=== PATIENT | female | born 1995 | race African-American/Black ===

== ENCOUNTER → 2018-09-02 | Outpatient (CLI) | payer BC ==
--- NOTE | 2018-09-02 10:00 | KCIC ---
MRI Brain without contrast History: Family history of brain tumor, headaches for 2 to 3 weeks, nausea Technique: Multiplanar, multisequential noncontrast MR imaging was performed of the brain. Comparison: None Findings: There is no evidence of recent infarct or cytotoxic edema. The ventricles, sulci, and cisterns are within normal limits in size and configuration. There is no significant midline shift, intraaxial mass effect, or focal abnormal extra-axial fluid collection. There is no significant signal abnormality of the brain parenchyma. There is some fullness as seen on axial FLAIR sequence located above the right aspect of the optic chiasm which may be related to volume averaging with adjacent parenchyma although asymmetric appearance comparing with the left. There is preservation of the major intracranial flow-voids at the skull base. The mastoid air cells are aerated. The cerebellar tonsils are are at the lower limits of normal in location. There is no significant abnormality of the pineal gland or pituitary gland. There is mild patchy bilateral ethmoid air cell and left sigmoid sinus mucosal thickening. There is also mild left greater than right maxillary sinus mucosal thickening. Frontal sinus is not pneumatized. Some heterogeneity of the marrow of the clivus is likely due to residual red marrow in a patient of this age. There is nonspecific mild increased CSF signal of the right optic nerve sheath not seen on the left. There is nonspecific mild prominence of the adenoids. Impression: 1. There is some fullness superior to the right optic chiasm asymmetric with the left, more likely related to component of volume averaging although thin section images such as orbital protocol to include postcontrast imaging may be beneficial given history. 2. There is mild paranasal sinus mucosal thickening as described. Electronically signed by: Karan Churchill MD (09/02/2018 9:58 AM) [facility]
== END | disposition home or self-care (01) ==
LOC: KCIC MRI 08:19
PROVIDERS: ATTEND Registered Nurse
DX: J34.89 Other specified disorders of nose and nasal sinuses (principal)
CPT/HCPCS: 70551

== ENCOUNTER → 2018-11-25 | Outpatient (CLI) | payer BC ==
[~2018-11-25] MED LIST: ALBU2.5V8 INH; GADOTERATE 7.5 MMOL/15ML VIAL. IVP ONE
--- NOTE | 2018-11-25 13:30 | KCIC ---
MRI of the orbits without and with contrast 11/25/2018 CLINICAL HISTORY: Headaches. Asymmetric fullness involving the right aspect of the optic chiasm seen on recent MRI of the brain. TECHNIQUE: Unenhanced T1-weighted axial images of the brain were obtained. Thin section fat saturated T1-weighted axial, T1-weighted coronal and fat saturated coronal images through the orbits were obtained. After the intravenous administration of 14 cc of Dotarem, enhanced thin section fat saturated T1-weighted axial and coronal images through the orbits were obtained. FINDINGS: Comparison study is dated 09/02/2018. The globes, optic nerve sheath complexes, extraocular muscles, optic chiasm and visualized portions of the optic tracts are within normal limits. No abnormal soft tissue mass or area of abnormal contrast enhancement is noted. No abnormality of the optic chiasm is seen. The asymmetric fullness in the region of the right aspect of the optic chiasm seen on patient's recent MRI of the brain is due to volume averaging with the inferior medial right frontal lobe. IMPRESSION: Negative MRI of the orbits. No abnormality of the optic chiasm is seen. The area of fullness seen involving the optic chiasm on the patient's recent MRI of the brain is related to volume averaging as discussed above. Electronically signed by: Mateo Mulligan MD (11/25/2018 1:28 PM) [id number]
== END | disposition home or self-care (01) ==
LOC: KCIC MRI 09:27
PROVIDERS: ATTEND Psychiatry & Neurology Neurology
DX: R51 Headache (principal); J45.909 Unspecified asthma, uncomplicated
CPT/HCPCS: 70543; A9575

== ENCOUNTER → 2019-04-10 | Outpatient (CLI) | payer BC ==
[~2019-04-10] MED LIST changes: -GADOTERATE 7.5 MMOL/15ML VIAL. IVP ONE
--- NOTE | 2019-04-10 09:53 | KCIC ---
BRAIN W/O CONTRAST Date: 04/10/2019 8:45 AM Indication: Headaches, head pressure Comparison: 11/25/2018, 09/02/2018. Technique: Multiplanar multisequence MRI of the brain was performed without intravenous contrast using the standard protocol. Findings: No acute infarct. No acute or chronic hemorrhage. The ventricles are normal in size and configuration without hydrocephalus. The scalp and calvarium are normal. The pituitary and sella are normal. No Chiari malformation. The visualized upper cervical spine is normal. The visualized orbits and globes are normal. The visualized paranasal sinuses are clear. The mastoid air cells are clear. Normal flow voids within the vertebral, basilar, and internal carotid arteries indicating patency. IMPRESSION: No acute infarct, hemorrhage, mass, or hydrocephalus. Electronically signed by: Karan Walker MD (04/10/2019 9:50 AM) [facility]
== END | disposition home or self-care (01) ==
LOC: KCIC MRI 08:44
PROVIDERS: ATTEND Psychiatry & Neurology Neurology with Special Qualifications in Child Neurology
DX: G43.009 Migraine without aura, not intractable, without status migrainosus (principal); G93.2 Benign intracranial hypertension
CPT/HCPCS: 70551

== ENCOUNTER → 2019-04-25 | Outpatient (CLI) | payer BC ==
[~2019-04-25] MED LIST changes: +LIDOCAINE WITH 8.4% SOD BICARB 3 ML DISP.SYRIN. INJ ONE
[2019-04-25 10:47] VITALS: BP 106/64
--- NOTE | 2019-04-25 10:59 | RAD ---
Examination: LUMBAR PUNCTURE History: Chronic headache Comparison/Correlation: None Findings: Risks and benefits of lumbar puncture were discussed with the patient and informed consent was obtained. A single image was acquired. Fluoroscopy was utilized for 1.6 minutes. Cleansing with Betadine was performed at the L4-5 and L5-S1 levels. Total 5 cc of 1 percent lidocaine was administered at the L5-S1 level. 20-gauge 6 inch spinal needle was successfully placed using interlaminar approach. Opening pressure of 18 mmHg noted. A total of 15 cc CSF was withdrawn and placed in varying quantities in 4 separate tubes. The CSF was slightly blood-tinged in the first few tubes likely related to hemorrhagic tap. The patient tolerated procedure well without immediate palpitations. Impression: Successful withdrawal of 15 cc CSF. Specimens sent to the lab. RS Compliance Statement: One or more of the following individualized dose reduction techniques were utilized for this examination: 1. Automated exposure control 2. Adjustment of the mA and/or kV according to patient size 3. Use of iterative reconstruction technique Electronically signed by: Americo Miles MD (04/25/2019 10:56 AM) [facility]
[2019-04-25 11:32] LABS: CSF CLARITY CLOUDY; CSF COLOR RED; CSF RBC COUNT 1850 /cmm (Not Established); CSF WBC COUNT 0 /cmm (Not Established)
[2019-04-25 11:54] LABS: CSF PROTEIN 23.4 mg/dL (15.0-45.0)
--- NOTE | 2019-04-25 12:00 | NUR ---
pt discharged to home with family. Discharge instructions reviewed with pt. pt ambulated and denied headache
== END | disposition home or self-care (01) ==
LOC: RAD 09:09
PROVIDERS: ATTEND Psychiatry & Neurology Neurology with Special Qualifications in Child Neurology
DX: R51 Headache (principal); G93.2 Benign intracranial hypertension
CPT/HCPCS: 62270; 62328; 77003; 82945; 84157; 89051

== ENCOUNTER → 2020-02-20 | Outpatient (CLI) | payer OTHER, BC ==
[2019-04-25 10:47] VITALS: BP 106/64
[~2020-02-20] MED LIST changes: -LIDOCAINE WITH 8.4% SOD BICARB 3 ML DISP.SYRIN. INJ ONE
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
== END ==
LOC: KCIC MRI 09:27
PROVIDERS: ATTEND Physician Assistant
DX: M54.16 Radiculopathy, lumbar region (principal)
CPT/HCPCS: 72148

== ENCOUNTER → 2020-07-08 | Outpatient (CLI) | payer OTHER ==
[2019-04-25 10:47] VITALS: BP 106/64
[~2020-07-08] MED LIST changes: +ESCITALOPRAM OX10 MG PO; +HYDR-2763 PO; +NORG1TAB70 PO; +TOPI100T8 PO; +[UNRECOGNIZED DRUG - OTHER]
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
== END | disposition home or self-care (01) ==
LOC: PNCL 10:37
PROVIDERS: ATTEND Anesthesiology
DX: M54.2 Cervicalgia (principal); M79.602 Pain in left arm; M79.605 Pain in left leg; M54.5 Low back pain; G43.909 Migraine, unspecified, not intractable, without status migrainosus; D64.9 Anemia, unspecified; J45.909 Unspecified asthma, uncomplicated; Z79.899 Other long term (current) drug therapy
CPT/HCPCS: 99214; G0463

== ENCOUNTER → 2020-08-02 | Outpatient (CLI) | payer OTHER ==
[2019-04-25 10:47] VITALS: BP 106/64
--- NOTE | 2020-08-02 15:02 | RAD ---
MR CERVICAL SPINE WO DATE: 08/02/2020 11:23 AM INDICATION: CHRONIC RIGHT SIDED NECK PAIN. NO KNOWN INJURY TECHNIQUE: Multiplanar multisequence magnetic resonance imaging of the cervical spine was performed w ithout administration of intravenous contrast using the standard cervical spine protocol. COMPARISON: None. FINDINGS: The cervical spine is normally aligned. No acute fracture. The intervertebral discs are normal. Bone marrow signal intensity is normal. The spinal cord is normal in signal intensity. On the limited views of the cranial cavity and brain, the cerebellum and yandel have normal morphology and signal characteristics. No Chiari malformation. No soft tissue abnormality. Normal signal voids are present in the vertebral arteries. C2-3: No significant spinal canal stenosis or neural foraminal narrowing. C3-4: No significant spinal canal stenosis or neural foraminal narrowing. C4-5: No significant spinal canal stenosis or neural foraminal narrowing. C5-6: No significant spinal canal stenosis or neural foraminal narrowing. C6-7: No significant spinal canal stenosis or neural foraminal narrowing. C7-T1: No significant spinal canal stenosis or neural foraminal narrowing. IMPRESSION: No significant spinal canal stenosis or neural foraminal narrowing. Electronically signed by: Karan Walker MD (08/02/2020 3:00 PM) [id number]
== END | disposition home or self-care (01) ==
LOC: MRI 11:28
PROVIDERS: ATTEND Anesthesiology
DX: M54.2 Cervicalgia (principal); Z79.899 Other long term (current) drug therapy
CPT/HCPCS: 72141

== ENCOUNTER → 2020-09-28 | Outpatient (CLI) | payer OTHER ==
[2019-04-25 10:47] VITALS: BP 106/64
--- NOTE | 2020-09-28 11:05 | PDOC ---
Progress Note - Pain Clinic Date of Service: DOS: DATE: 09/28/20 TIME: 11:00 Diagnosis: Dx: Cervical radiculopathy with cervicalgia Low back pain with lumbar spondylosis Myofascial pain History or Present Illness: HPI: 24-year-old female returns for follow-up status post initial evaluation July 08, 2020 and physical therapy which she is completing now for her low back and neck and shoulders patient reports her neck and shoulder slightly improved her low back is her main complaint still significant pain in the low back diana aterally right equal to left worse with walking standing specially standing still for more than 10 to 15 minutes and sitting for more than 15 to 20 minutes patient reports significant pain across the low back and not radiating to the lower extremities but in the low back itself. Patient reports is better with sitting or laying down but sitting after 20 minutes makes it worse patient reports it generally is not waking her from sleep at night sleeps about 8 hours at a time. Patient rates the pain as 8 on scale 10 is worse over the past week 8 on average 7 its least is 8 today patient has aching and sharp constant across the low back burning and stabbing at times. Patient reports is worse with change in position getting up from a seated position as well as sitting from a standing position. She reports no new motor or sensory deficits no bowel or bladder incontinence. Patient continues to do her physical therapy exercises and stretching at home although she reports is not significantly decreasing the pain. Physical Exam: VS: Blood pressure is 122/78 pulse 71 respirations 18 temperature 98.2 F height is 5 foot 3 inches weight is 215 pounds PE: PHYSICAL EXAMINATION: GENERAL: The patient is awake, alert, oriented, appropriate, very pleasant in demeanor HEENT: Shows normocephalic, atraumatic. Extraocular movements are intact and s ymmetrical. NECK: Shows anterior throat supple without palpable lymphadenopathy noted. Swallow reflex symmetrical. CHEST: Shows normal on inspection. Breath sounds are clear bilaterally. HEART: Shows S1, S2 clear. No murmurs auscultated. ABDOMEN: Soft, nontender, nondistended, obese. BACK: Shows spine grossly in the midline. Normal-appearing cervical lordotic curvature. There is mildly increased thoracic kyphosis, some flattening of the lumbar lordotic curvature. Lumbar paraspinous muscles show symmetrical on inspection, on palpation shows some moderate tenderness diffusely throughout the upper, middle and lower distribution of the paraspinous muscles without specific trigger points, without radiation of pain. The patient has good rotational motion of the lumbar spine, both laterally as well as extension and flexion with significant tenderness with extension and axial loading lumbar spine with pain across the low back right and left this is better with forward flexion at 45 degrees but still present right and left lateral rotation greater than 10 degrees shows significant pain as well in the low back itself without radiation bilaterally. No tenderness over the spinous processes, sacrum or sacroiliac regions. EXTREMITIES: Lower extremities show deep tendon reflexes 2+ in the patellar and tendo calcaneus tendons. Motor exam is 5 on a scale of 5 with right dorsiflexion, extension, quadriceps and hamstring flexion and 5/5 on the left. Peripheral pulses are 1+ posterior tibial. No peripheral edema is noted bilaterally. Lower extremities are warm and dry to touch, equal in color and appearance. SKIN: Shows warm and dry, good turgor. No edema. No sores, rashes or bruising throughout. Procedure: Procedure: Options discussed with the patient. Patient's old chart was reviewed his current medication regimen updated current review of systems updated today as well. We will preauthorize patient for bilateral lumbar facet medial branch injections with fluoroscopic guidance. Patient will continue with stretching strengthening exercises from physical therapy as currently as well as [id number] oral analgesics as currently. Also give patient prescription for Medrol Dosepak patient was given instructions well side effects aware with the medication. Patient will follow up after preapproval with her insurance provider for bilateral L4-5 and L5-S1 medial branch facet blocks. Medication Injected: Med Injected: None Condition at Discharge: Condition at Discharge: Condition at discharge is stable. KWAME CAMPBELL MD Sep 28, 2020 11:05
== END | disposition home or self-care (01) ==
LOC: PNCL 09:43
PROVIDERS: ATTEND Anesthesiology
DX: M54.2 Cervicalgia (principal); M54.12 Radiculopathy, cervical region; M47.816 Spondylosis without myelopathy or radiculopathy, lumbar region; M54.5 Low back pain; M79.18 Myalgia, other site; Z79.899 Other long term (current) drug therapy
CPT/HCPCS: 99212; G0463